=== PATIENT | male | born 1975 | race Caucasian/White ===

== ENCOUNTER → 2018-02-04 | Outpatient (CLI) | payer BC ==
[~2018-02-04] VITALS: Ht 181.6 cm; Wt 93.8 kg
[~2018-02-04] MED LIST: CENTRUM1 TA1 PO; VITAMINC1000TA PO
[2018-02-04 06:09] VITALS: BP 139/82; PULSE 88
== END ==
LOC: COL.CARD 05:45
DX: R07.9 Chest pain, unspecified (principal); Z23 Encounter for immunization; Z80.0 Family history of malignant neoplasm of digestive organs; Z88.0 Allergy status to penicillin; Z88.1 Allergy status to other antibiotic agents
CPT/HCPCS: A9502

== ENCOUNTER → 2019-11-21 | Outpatient (CLI) | payer BC | LOC: ZCOL.LAB 17:12 | DX: R50.9 Fever, unspecified (principal); Z20.828 Contact with and (suspected) exposure to other viral communicable diseases ==